=== PATIENT | female | born 1980 | race Caucasian/White ===

== ENCOUNTER → 2025-01-18 | Day surgery (SDC) | payer OTHER ==
[~2025-01-18] MED LIST: ADVIL200 M1 PO; ALPRAZOLAM1 MG PO; BACLOFEN10 MG PO; COLACE100 M1 PO; FAMOTIDINE20 MG PO; GUANFACINE; HYDROXYZINE HCL10 MG PO; HYOSCYAMINE SULFATE 0.5 MG/ML INJ ONE; LIDOCAINE HCL 2% LOCAL INJ 5 ML SDV VIAL INJ ONE; LINZESS145 MCG PO; MEDR IM; MIDAZOLAM HCL 2 MG/2 ML VIAL ONE; PRISTIQ ER50 MG PO; PROPOFOL IV EMULSION 10 MG/ML 20 ML VIAL ONE; PROPOFOL IV EMULSION 50 ML IV ONE
[2025-01-18] MEDS: LACTATED RINGER'S 1,000 ML ONE (07:42)
[2025-01-18 10:04] VITALS: TEMP 97.2
[2025-01-18 10:35] VITALS: BP 149/79; PULSE 87; RESP 16; O2SAT 98
== END | disposition home or self-care (01) ==
LOC: OR 07:06
PROVIDERS: ATTEND Internal Medicine Gastroenterology
DX: K29.50 Unspecified chronic gastritis without bleeding (principal); K21.9 Gastro-esophageal reflux disease without esophagitis; K44.9 Diaphragmatic hernia without obstruction or gangrene; K63.5 Polyp of colon; K64.4 Residual hemorrhoidal skin tags; K64.1 Second degree hemorrhoids; K62.89 Other specified diseases of anus and rectum; D64.9 Anemia, unspecified; F31.9 Bipolar disorder, unspecified; F41.9 Anxiety disorder, unspecified; E73.9 Lactose intolerance, unspecified; F17.210 Nicotine dependence, cigarettes, uncomplicated; F12.90 Cannabis use, unspecified, uncomplicated; Z88.5 Allergy status to narcotic agent; Z79.1 Long term (current) use of non-steroidal anti-inflammatories (NSAID); Z68.32 Body mass index [BMI] 32.0-32.9, adult; Z79.3 Long term (current) use of hormonal contraceptives; Z79.899 Other long term (current) drug therapy
CPT/HCPCS: 43239; 45384; 81025; 93005; J1980; J2003; J2250; J2704 ×2; J7121